=== PATIENT | female | born 1965 | race Caucasian/White ===

== ENCOUNTER → 2021-10-19 10:16 | Outpatient (BNVA) | payer SELFPAY | PROVIDERS: Visit Provider Nurse Practitioner Family | DX: R39.9 Unspecified symptoms and signs involving the genitourinary system (principal); B99.9 Unspecified infectious disease; R10.9 Unspecified abdominal pain; R19.09 Other intra-abdominal and pelvic swelling, mass and lump | CPT/HCPCS: 81000 ==